=== PATIENT | male | born 1980 | race Caucasian/White ===

== ENCOUNTER 2019-10-11 14:30 | Emergency (ER) | payer SELFPAY ==
[~2019-10-11] VITALS: Ht 170.2 cm; Wt 91.4 kg
[2019-10-11 14:38] VITALS: BP 125/80
--- NOTE | 2019-10-11 14:49 | NUR ---
PT AMBULATED STEADILY TO ROOM FROM [facility] WITH TECH AND SO. PT APPEARS UPSET, TAKING OFF BP CUFF AND THROWING IT IN ROOM. AWAITING ERP EVAL.
--- NOTE | 2019-10-11 15:10 | NUR ---
PT ASSESSED WITH ERP PRESENT SECONDARY TO PATIENT'S AGGRESSIVE BEHAVIOR. PT AGGITATED AND BECOMES AGGRAVATED WITH SIMPLE QUESTIONING REGARDING MEDICAL HX AND REASON FOR ED VISIT. PT PLACED SELF ON O2 BY NC AND OPENED AMBU-BAG "BECAUSE I NEEDED A BAG FOR MY STUFF". PT MOSTLY RESTLESS. SO AT BEDSIDE. PT PROVIDED PO FLUIDS OKAY PER ERP. PT AWARE OF NEED FOR UA AND LAB WORK. [employer] SPECIALIST ZENIA TO EVALUATE PATIENT. PT AGGETATED BUT AGREEABLE TO POC.
[2019-10-11 15:43] LABS: BASOPHILS # (AUTO) 0.02 x10^3/uL (0-0.1); BASOPHILS % (AUTO) 0 % (0-1); EOSINOPHILS # (AUTO) 0.01 x10^3/uL (0-0.4); EOSINOPHILS % (AUTO) 0 % (1-7); LYMPHOCYTES # (AUTO) 0.96 x10^3/uL (1-3.4); LYMPHOCYTES % (AUTO) 8 % (22-44); MD NO; MEAN CORPUSCULAR HEMOGLOBIN 32.1 pg (27.5-34.5); MEAN CORPUSCULAR HGB CONC 33.2 g/dL (33.2-36.2); MEAN CORPUSCULAR VOLUME 96.7 fL (81-97); MEAN PLATELET VOLUME 8.4 fL (7.4-10.4); MONOCYTES % (AUTO) 7 % (2-9); NEUTROPHILS # (AUTO) 10.19 x10^3/uL (1.8-6.8); NEUTROPHILS % (AUTO) 85 % (42-75); PLATELET COUNT 442 x10^3/uL (130-400); RED BLOOD COUNT 4.77 x10^6/uL (4.38-5.82); RED CELL DISTRIBUTION WIDTH 13.8 % (9.4-14.8)
[2019-10-11 15:53] LABS: ALBUMIN 3.9 g/dL (3.4-5.0); ANION GAP 5 mmol/L (5-15); CALCIUM 9.6 mg/dL (8.5-10.1); CHLORIDE 107 mmol/L (98-107)
[2019-10-11] MEDS ORDERED: OLANZAPINE 5 MG TABLET PO SCH (16:00)
[2019-10-11 16:06] LABS: ALANINE AMINOTRANSFERASE 70 U/L (12-78); ALKALINE PHOSPHATASE 52 U/L (45-117); BILIRUBIN,TOTAL 0.7 mg/dL (0.2-1.0); CREATININE 1.11 mg/dL (0.7-1.3); TOTAL PROTEIN 7.9 g/dL (6.4-8.2)
[2019-10-11 16:07] LABS: SALICYLATE LEVEL < 1.7 mg/dL (2.8-20.0)
[2019-10-11] MEDS ORDERED: OLANZAPINE 5 MG TABLET ONE (16:21)
--- NOTE | 2019-10-11 16:23 | NUR ---
PT MEDICATED PER EMAR. UA COLLECTED AND SENT
[2019-10-11 16:43] LABS: MICROSCOPIC NOT IND
[2019-10-11 16:59] LABS: AMPHETAMINE SCREEN, URINE Negative (Negative); BARBITURATE SCREEN, URINE Negative (Negative); BENZODIAZEPINE SCREEN, URINE Negative (Negative); CANNABINOID SCREEN, URINE Positive (Negative); COCAINE SCREEN, URINE Negative (Negative); METHADONE SCREEN, URINE Negative (Negative); OPIATE SCREEN, URINE Negative (Negative)
--- NOTE | 2019-10-11 17:10 | NUR ---
DC EDUCATION PROVIDED TO PT/SO WHO DEMONSTRATE UNDERSTANDING. PT HAS CONTINUED AGGRESSIVE BEHAVIOR BUT HAS IMPROVED. PT REFUSING TO WEAR SHIRT OUT OF ED BUT HAS AGREED TO WEAR SCRUB PANTS SINCE PT'S OWN CLOTHING IS SOILED.
== END 2019-10-11 17:13 | disposition home or self-care (01) ==
LOC: ED 17:00
DX: F30.9 Manic episode, unspecified (principal); R44.0 Auditory hallucinations; E86.0 Dehydration
CPT/HCPCS: 36415; 80053; 80307; 81003; 84443; 85025; 99284